=== PATIENT | female | born 1985 | race Caucasian/White ===

== ENCOUNTER 2018-10-08 19:53 | Emergency (ER) | payer SELFPAY ==
[~2018-10-08] VITALS: Ht 175.3 cm; Wt 87.7 kg
--- NOTE | 2018-10-08 21:12 | NUR ---
Assumed care of patient. C/O bolat lower ABD pain. Denies N/V/D, VB, adn vaginal discharge. UA sent. Will continue to monitor.
[2018-10-08] MEDS ORDERED: ONDANSETRON ODT 4 MG ONE (21:16)
[2018-10-08] MEDS ORDERED: HYDROcodone/APAP 5/325 TABLET ONE (21:16)
[2018-10-08 21:19] LABS: BASOPHILS # (AUTO) 0.03 x10^3/uL (0-0.1); BASOPHILS % (AUTO) 1 % (0-1); EOSINOPHILS # (AUTO) 0.02 x10^3/uL (0-0.4); EOSINOPHILS % (AUTO) 1 % (1-7); LYMPHOCYTES # (AUTO) 1.62 x10^3/uL (1-3.4); LYMPHOCYTES % (AUTO) 38 % (22-44); MD NO; MEAN CORPUSCULAR HEMOGLOBIN 29.2 pg (27.0-34.8); MEAN CORPUSCULAR HGB CONC 32.9 g/dL (32.4-35.8); MEAN PLATELET VOLUME 6.1 fL (7.4-10.4); MONOCYTES # (AUTO) 0.36 x10^3/uL (0.2-0.8); MONOCYTES % (AUTO) 9 % (2-9); NEUTROPHILS # (AUTO) 2.21 x10^3/uL (1.8-6.8); NEUTROPHILS % (AUTO) 52 % (42-75); PLATELET COUNT 397 x10^3/uL (130-400); RED CELL DISTRIBUTION WIDTH 13.1 % (9.6-15.2)
[2018-10-08 21:29] LABS: CULTURE INDICATED? YES; MICROSCOPIC INDICATED
[2018-10-08] MEDS ORDERED: ONDANSETRON ODT 4 MG PO ONE (21:30)
[2018-10-08] MEDS ORDERED: HYDROcodone/APAP 5/325 TABLET PO ONE (21:30)
[2018-10-08 21:32] LABS: ALANINE AMINOTRANSFERASE 86 U/L (12-78); ALBUMIN 3.6 g/dL (3.4-5.0); ANION GAP 5 mmol/L (5-15); CALCIUM 8.5 mg/dL (8.5-10.1); CHLORIDE 108 mmol/L (98-107); CREATININE 0.87 mg/dL (0.55-1.02)
[2018-10-08 21:36] VITALS: BP 119/83
[2018-10-08 21:36] LABS: ALKALINE PHOSPHATASE 54 U/L (45-117); BILIRUBIN,TOTAL 0.6 mg/dL (0.2-1.0)
--- NOTE | 2018-10-08 21:37 | NUR ---
RECEIVED REPORT FROM DIDIER LOONEY, ASSUMING CARE AT THIS TIME
--- NOTE | 2018-10-08 21:49 | NUR ---
ALL RESULTS BACK AT THIS TIME, CHART UP FOR RECHECK
--- NOTE | 2018-10-08 22:02 | NUR ---
MD TO BEDSIDE TO UPDATE PT ON POC
== END 2018-10-08 22:18 | disposition home or self-care (01) ==
LOC: ED 22:12
DX: R10.32 Left lower quadrant pain (principal); R10.31 Right lower quadrant pain; Z90.49 Acquired absence of other specified parts of digestive tract
CPT/HCPCS: 36415; 76830; 80053; 81001; 83690; 84703; 85025; 87077; 87086; 87186; 99284; Q0162